=== PATIENT | male | born 1950 | race Caucasian/White ===

== ENCOUNTER 2023-11-09 10:14 | Inpatient (IN) | payer OTHER ==
[~2023-11-09] VITALS: Ht 190.5 cm; Wt 163.3 kg
[~2023-11-09 10:14] MED LIST: ASCO500T11 PO; ASPI81CH59 PO; ATOR10TA PO; CHOL25CH3 PO; GABA-1250 PO; HYDR25TA5 PO; LEV50T PO; LISI40TA16 PO; MULT-930 PO; OMEG-28 PO
[2023-11-09] MEDS: ceFAZolin 2 GM/D5W50ml 50 ML IV ONE (10:56)
[2023-11-09] MEDS ORDERED: DexAMETHasone SOD PHOS 10MG/1ML VIAL INJ ONE ×2 (12:04→14:44)
[2023-11-09] MEDS ORDERED: KETOROLAC TROMETH 30 MG/ML 1ML VIAL ONE ×2 (12:04→13:07)
[2023-11-09] MEDS ORDERED: LIDOCAINE 1% INJ PF 5ML AMP ONE (12:04)
[2023-11-09] MEDS ORDERED: ONDANSETRON HCL 4 MG/2 ML VIAL ONE (12:04)
[2023-11-09] MEDS ORDERED: PROPOFOL 10 MG/ML 20 ML IV ONE ×2 (12:05→14:47)
[2023-11-09] MEDS ORDERED: GLYCOPYRROLATE 0.2 MG/ML 1ML VIAL ONE (12:05)
[2023-11-09] MEDS ORDERED: KETAMINE 50mg/ML 1ml syringe ONE (12:09)
[2023-11-09] MEDS: ROPIVACAINE 0.5% (5MG/ML) 20ML AMPULE IJ ONE (12:59)
[2023-11-09] MEDS: TRANEXAMIC ACID 20 ML ONE (12:59)
[2023-11-09] MEDS: VANCOMYCIN HCL 1000 MG VL ONE (13:00)
[2023-11-09] MEDS: BUPIVACAINE 0.25% INJ 50ML VIAL ONE (13:04)
[2023-11-09] MEDS: CELECOXIB 100 MG CAP ONE (13:04)
[2023-11-09] MEDS: ACETAMINOPHEN IV 100 ML IV ONE (13:04)
[2023-11-09] MEDS: GABAPENTIN 400 MG CAP ONE (13:05)
[2023-11-09] MEDS ORDERED: MORPHINE SULF PF 5 MG/10 ML VIAL ONE (13:07)
[2023-11-09] MEDS: ACETAMINOPHEN IV 1000 MG/100ML (10MG/ML) IV ONE (13:22)
[2023-11-09] MEDS: GABAPENTIN 400 MG CAP PO ONE (13:23)
[2023-11-09] MEDS: CELECOXIB 100 MG CAP PO ONE (13:23)
[2023-11-09] MEDS ORDERED: ceFAZolin 1GM VL ONE (13:48)
[2023-11-09] MEDS ORDERED: ESMOLOL HCL 10 ML IV ONE (13:52)
[2023-11-09] MEDS ORDERED: PHENYLEPHRINE HCL 10 MG/ML VL ONE (14:01)
[2023-11-09] MEDS ORDERED: SODIUM CHLORIDE LOCK 10 ML ONE (14:01)
[2023-11-09] MEDS ORDERED: METOPROLOL TARTRATE 1MG/1ML-5ML VIAL IV ONE (14:08)
[2023-11-09] MEDS: EPINEPHrine HCL 1 MG/1 ML AMP ONE (14:20)
[2023-11-09] MEDS ORDERED: oxyCODONE HCL 5MG TAB PO PRN ×3 (15:45→16:30)
[2023-11-09] MEDS ORDERED: ACETAMINOPHEN 325 MG TAB PO PRN (15:45)
[2023-11-09 16:00] VITALS: O2SAT 91
[2023-11-09] MEDS ORDERED: hydrALAZINE HCL 20 MG/ML VL IV PRN (16:30)
[2023-11-09] MEDS ORDERED: ONDANSETRON HCL 4 MG/2 ML VIAL IV PRN (16:30)
[2023-11-09] MEDS ORDERED: HYDROmorphone HCL 2 MG/ML VL/or syr IV PRN (16:30)
[2023-11-09] MEDS ORDERED: NALOXONE HCL 0.4 MG/ML VIAL IV PRN (16:30)
[2023-11-09] MEDS ORDERED: LABETALOL HCL 5 MG/ML 4ML SYRINGE IV PRN (16:30)
[2023-11-09] MEDS ORDERED: ePHEDrine SULFATE 50 MG/ML AMP IV PRN (16:30)
[2023-11-09] MEDS ORDERED: fentaNYL CITRATE 100 MCG/2 ML VL IV PRN (16:30)
[2023-11-09] MEDS ORDERED: FLUMAZENIL 0.1 MG/ML INJ 10ML MDV IV PRN (16:30)
[2023-11-09 18:49] VITALS: O2SAT 94
[2023-11-09 20:06] VITALS: BP 117/81; PULSE 83; PULSE 91; RESP 18; TEMP 98.1; O2SAT 92
[2023-11-09] MEDS: PREGABALIN 25 MG CAP PO SCH (21:23)
[2023-11-09] MEDS: ATORVASTATIN 20 MG TAB PO SCH (21:24)
[2023-11-09] MEDS: ceFAZolin 2 GM/D5W50ml 50 ML IV SCH (21:48)
[2023-11-09 22:00] VITALS: BP 116/79; PULSE 98; RESP 22; TEMP 98.4; O2SAT 90
[2023-11-10] MEDS: KETOROLAC TROMETH 30 MG/ML 1ML VIAL IV SCH
[2023-11-10] MEDS: ACETAMINOPHEN 325 MG TAB PO SCH
[2023-11-10 01:00] VITALS: BP 114/64; PULSE 98; RESP 21; TEMP 97.5; O2SAT 92
[2023-11-10] MEDS: D5W/LACTATED RINGERS 1,000 ML IV SCH (04:51)
[2023-11-10 05:00] VITALS: BP 113/78; PULSE 87; RESP 21; TEMP 98.1; O2SAT 95
[2023-11-10 06:16] LABS: Basophils # (auto) 0 10 ^3/uL (0-0.2); Basophils % (auto) 0.1 % (0.0-2.0); Eosinophils # (auto) 0 10 ^3/uL (0-0.8); Hematocrit 35.4 % (41.0-53.0); Lymphocytes # (auto) 0.6 10 ^3/uL (0.4-5.4); Lymphocytes % (auto) 6.4 % (10.0-50.0); Mean Corpuscular Hemoglobin 30.2 pg (28.0-32.0); Mean Corpuscular Hgb Conc. 33.9 g/dL (32.0-36.0); Mean Corpuscular Volume 89.2 fL (80.0-100.0); Monocytes # (auto) 0.6 10 ^3/uL (0-1.3); Monocytes % (auto) 6.2 % (0.0-12.0); Neutrophils # (auto) 8.8 10 ^3/uL (1.6-8.6); Neutrophils % (auto) 87.3 % (37.0-80.0); Red Blood Cells 3.97 10^6/uL (4.5-5.90); Red Cell Distribution Width 13.6 % (11.8-14.3); White Blood Cell 10.1 10^3/uL (4.4-10.8)
[2023-11-10 06:29] LABS: Anion Gap 9 (5-15); Carbon Dioxide 24 mmol/L (20-30); Chloride 104 mmol/L (98-107); Potassium 4.2 mmol/L (3.5-5.1); Sodium 137 mmol/L (136-145)
[2023-11-10 06:30] LABS: Calcium 8.7 mg/dL (8.5-10.1)
[2023-11-10 06:35] LABS: BUN/Creatinine Ratio 21.4 (10.0-20.0); Blood Urea Nitrogen 22 mg/dL (9-23); Glucose 125 mg/dL (74-106)
[2023-11-10 08:05] VITALS: BP 119/68; PULSE 91; RESP 18; TEMP 97.8
[2023-11-10 09:00] VITALS: BP 102/76; PULSE 66; RESP 18; TEMP 97.8; O2SAT 99
[2023-11-10 09:12] LABS: Hepatitis B Surface Antigen Negative (Negative)
[2023-11-10 09:33] LABS: Hepatitis C Antibody Negative (Negative)
[2023-11-10] MEDS: APIXABAN 2.5 MG TAB PO SCH (09:55)
[2023-11-10] MEDS: LISINOPRIL 20 MG TAB PO SCH (09:57)
[2023-11-10] MEDS: hydroCHLOROthiazide 25 MG TAB PO SCH (09:58)
[2023-11-10] MEDS: LEVOTHYROXINE SODIUM 50 MCG TAB PO SCH (09:58)
[2023-11-10 13:00] VITALS: BP 107/50; PULSE 88; RESP 18; TEMP 97.5; O2SAT 92
[2023-11-10] MEDS: TAMSULOSIN HYDROCHLORIDE 0.4 MG CAP PO ONE (13:02)
[2023-11-10] MEDS: SODIUM CHLORIDE 0.9% 1,000 ML IV SCH (13:15)
[2023-11-10 15:45] VITALS: BP 107/50; PULSE 72; RESP 18; TEMP 97.5; O2SAT 92
[2023-11-11] MEDS ORDERED: TAMS-35 PO (16:32)
== END 2023-11-10 16:30 | disposition home or self-care (01) | DRG 470 ==
LOC: SUR 10:14 → OVERFLOW 15:40 → CENTRAL 19:06
PROVIDERS: ADMIT Orthopaedic Surgery; ATTEND Orthopaedic Surgery
PROC: 0SRC069 Replacement of Right Knee Joint with Oxidized Zirconium on Polyethylene Synthetic Substitute, Cemented, Open Approach (ICD-10-PCS; principal; 2023-11-09 13:47)
DX: M17.11 Unilateral primary osteoarthritis, right knee (principal); E78.5 Hyperlipidemia, unspecified; E03.9 Hypothyroidism, unspecified; R33.9 Retention of urine, unspecified; Z82.3 Family history of stroke; Z84.1 Family history of disorders of kidney and ureter; Z79.82 Long term (current) use of aspirin; Z79.899 Other long term (current) drug therapy
CPT/HCPCS: 36415; 73560; 76856; 80048; 85025; 86803; 86850; 86900; 86901; 87340; 97110; 97116; 97163; 97530; C1713; G0378; J0131; J0171; J0690; J1100; J1885; J2405; J2704; J3490